=== PATIENT | female | born 1965 | race Caucasian/White ===

== ENCOUNTER 2017-07-27 17:56 | Observation (INO) | payer MEDICAID, OTHER ==
[2017-07-27 18:52] LABS: ADD MAN DIFF? NO
[2017-07-27 18:55] LABS: WHITE BLOOD COUNT 6.9 10^3/ul (4.8-10.8)
[2017-07-27 18:55] LABS: BASOPHIL # 0.1 10^3/ul (0.0-0.1); BASOPHILS % 0.9 % (0.0-2.0); EOSINOPHILS # 0.1 10^3/ul (0.0-0.5); EOSINOPHILS % 0.9 % (0.0-7.0); HEMATOCRIT 39.9 % (37.0-47.0); HEMOGLOBIN 13.4 g/dl (12.0-16.0); LYMPHOCYTES # 2.2 10^3/ul (0.8-2.9); LYMPHOCYTES % 31.5 % (15.0-51.0); MEAN CORPUSCULAR HEMOGLOBIN 30.7 pg (29.0-33.0); MEAN CORPUSCULAR HGB CONC 33.6 g/dl (32.0-37.0); MEAN CORPUSCULAR VOLUME 91.3 fl (82.0-101.0); MEAN PLATELET VOLUME 10.6 fl (7.4-10.4); MONOCYTE # 0.5 10^3/ul (0.3-0.9); MONOCYTES % 6.7 % (0.0-11.0); NEUTROPHIL # 4.1 10^3/ul (1.6-7.5); NEUTROPHILS % 59.7 % (39.0-77.0); PLATELET COUNT 213 10^3/UL (140-415); RED BLOOD COUNT 4.37 10^6/ul (4.20-5.40); RED CELL DISTRIBUTION WIDTH 12.3 % (11.5-14.5)
[2017-07-27] MEDS: ASPIRIN 81 MG TAB PO (18:57)
[2017-07-27] MEDS: NITROGLYCERIN 2% 1 GM OINT PKT TD (18:58)
[2017-07-27] MEDS ORDERED: NITROGLYCERIN (SL) 0.4 MG TAB SL (19:00)
[2017-07-27 19:16] LABS: ANION GAP 15 (8-16); BLOOD UREA NITROGEN 12 mg/dl (7-20); CALCIUM 9.3 mg/dl (8.4-10.2); CARBON DIOXIDE 25 mmol/L (21-31); CHLORIDE 105 mmol/L (97-110); CREATININE 0.74 mg/dl (0.44-1.00); GLUCOSE 92 mg/dl (70-220); POTASSIUM 3.8 mmol/L (3.5-5.1); SODIUM 141 mmol/L (135-144)
[2017-07-27 19:26] LABS: TROPONIN-I < 0.012 ng/ml (0.00-0.12)
[2017-07-27] MEDS ORDERED: ONDANSETRON 4 MG INJ IV (20:00)
[2017-07-27] MEDS ORDERED: ACETAMINOPHEN 325 MG TAB PO (20:00)
[2017-07-27] MEDS ORDERED: NACL 0.9% 3 ML SYG IV (21:30)
[2017-07-27] MEDS ORDERED: ACETAMINOPHEN 650 MG SUPP PR (21:30)
[2017-07-27] MEDS ORDERED: HYDROCODONE/APAP (5/325) TAB PO (21:30)
[2017-07-27] MEDS ORDERED: morphine 2 MG INJ IV (21:30)
[2017-07-28 01:22] LABS: CREATINE KINASE 74 IU/L (23-200)
[2017-07-28 01:35] LABS: CK INDEX 1.2; CK-MB 0.92 ng/ml (0.0-2.4)
[2017-07-28 01:38] LABS: TROPONIN-I < 0.012 ng/ml (0.00-0.12)
[2017-07-28 06:43] LABS: ADD MAN DIFF? NO
[2017-07-28 06:46] LABS: WHITE BLOOD COUNT 8.9 10^3/ul (4.8-10.8)
[2017-07-28 06:46] LABS: BASOPHIL # 0.1 10^3/ul (0.0-0.1); BASOPHILS % 0.7 % (0.0-2.0); EOSINOPHILS # 0.1 10^3/ul (0.0-0.5); EOSINOPHILS % 0.6 % (0.0-7.0); HEMOGLOBIN 12.6 g/dl (12.0-16.0); LYMPHOCYTES # 1.7 10^3/ul (0.8-2.9); LYMPHOCYTES % 19.4 % (15.0-51.0); MEAN CORPUSCULAR HEMOGLOBIN 30.6 pg (29.0-33.0); MEAN CORPUSCULAR HGB CONC 33.2 g/dl (32.0-37.0); MEAN CORPUSCULAR VOLUME 92.2 fl (82.0-101.0); MONOCYTE # 0.5 10^3/ul (0.3-0.9); MONOCYTES % 5.7 % (0.0-11.0); NEUTROPHIL # 6.6 10^3/ul (1.6-7.5); NEUTROPHILS % 73.4 % (39.0-77.0); PLATELET COUNT 203 10^3/UL (140-415); RED BLOOD COUNT 4.12 10^6/ul (4.20-5.40); RED CELL DISTRIBUTION WIDTH 12.5 % (11.5-14.5)
[2017-07-28 07:02] LABS: CREATINE KINASE 60 IU/L (23-200)
[2017-07-28 07:04] LABS: HEMOGLOBIN A1C 5.4 % (0-5.9)
[2017-07-28 07:07] LABS: ANION GAP 15 (8-16); BLOOD UREA NITROGEN 11 mg/dl (7-20); CALCIUM 8.7 mg/dl (8.4-10.2); CARBON DIOXIDE 25 mmol/L (21-31); CHLORIDE 109 mmol/L (97-110); CHOL/HDL RATIO 3.6 RATIO; CHOLESTEROL 159 mg/dl (100-200); CREATININE 0.69 mg/dl (0.44-1.00); GLUCOSE 110 mg/dl (70-220); HDL CHOLESTEROL 44 mg/dl (37-92); LDL CHOLESTEROL,CALCULATED 95 mg/dl; SODIUM 145 mmol/L (135-144); TRIGLYCERIDES 101 mg/dl (0-149)
[2017-07-28 07:13] LABS: CK INDEX 1.1; CK-MB 0.64 ng/ml (0.0-2.4)
[2017-07-28 07:17] LABS: TROPONIN-I < 0.012 ng/ml (0.00-0.12)
[2017-07-28] MEDS: ASPIRIN 81 MG TAB PO (09:43)
[2017-07-28] MEDS: ACETAMINOPHEN 325 MG TAB PO (09:43)
[2017-07-28] MEDS: ENOXAPARIN 40 MG/0.4 ML SYG SC (09:46)
[2017-07-29] MEDS: ASPIRIN 81 MG TAB PO (09:00)
[2017-07-29] MEDS: ENOXAPARIN 40 MG/0.4 ML SYG SC (09:20)
[2017-07-29] MEDS: REGADENOSON 0.4 MG/5 ML SYG (16:25)
[2017-07-30] MEDS: ASPIRIN 81 MG TAB PO (08:19)
[2017-07-30] MEDS: ENOXAPARIN 40 MG/0.4 ML SYG SC (08:22)
== END 2017-07-30 15:20 | disposition home or self-care (01) ==
LOC: E/R 17:56 → TEL 19:45
DX: R07.89 Other chest pain (principal); Z82.49 Family history of ischemic heart disease and other diseases of the circulatory system
CPT/HCPCS: 36415; 71045; 78452; 80048; 80061; 82550; 82553; 83036; 83735; 84484; 85025; 93005; 93017; 93306; 99285-25; G0378